=== PATIENT | female | born 1970 | race Caucasian/White ===

== ENCOUNTER → 2017-03-26 | Outpatient (CLI) | payer OTHER ==
[~2017-03-26] MED LIST: ACETAMINOPHEN-1 EAC1 PO; ALDACTONE50 MG; AMBIEN 5 MG TABL5 M1; AMITRIPTYLINE H10 M1 PO; CELEBREX 200 M200 M1; COLACE100 MG PO; CYMBALTA60 MG PO; EFFEXOR XR75 MG; FLEXERIL PO; HYDROCHLOROTH12.5 M1; HYDROCODONE-AP1 EAC6; LISINOPRIL20 MG; MEDROLDOSEPACK PO; METFORMIN HCL500 MG; MOBIC15 MG PO; NAPROSYN500 MG PO; PERCOCET 5-3251 EACH PO; ROBAXIN500 MG PO; TRAMADOL 50 MG50 MG PO; WELLBUTRIN XL150 MG PO; ZESTORETIC 20-1 EAC3 PO
--- NOTE | 2017-04-03 08:48 | PAINCON ---
[address] [address] PAIN MANAGEMENT CONSULTATION Name: JAVIER HENDERSON Room: [facility] WIL Delaney#: [id number] Admission: 03/26/17 Attend Phys: Darline Hester MD Discharge: Date of : 66 Report #: [id number] THIS REPORT FOR: //name// CC: Nicki Hester DATE OF SERVICE: 03/26/2017 CHIEF COMPLAINT: Neck pain, back pain and sciatic nerve pain. HISTORY OF PRESENT ILLNESS: The patient is a 46-year-old female who has been referred to the pain clinic for evaluation. The patient states that she has had a history of sciatic nerve pain. She is experiencing pain, which radiates down the posterior portion of her legs into her feet with numbness, weakness and tenderness. She has had this pain, which has waxed and waned. At this juncture, has become more problematic. She is having difficulty walking and engaging in activities of daily living. 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 Bending over causes an exacerbation of pain and discomfort, which radiates down into her legs, left and right in the posterior portion with numbness and tingling in her feet. She states that she has had an MRI of her back, which showed bulging disk. She has been using ibuprofen to help with the pain. She also finds Flexeril to be helpful with some of the pain, which is problematic in her legs. The patient has a history of diabetes. She does note some numbness and tingling in her hands as well as some down in her feet to the level of her ankles. She notes some burning sensation in these areas as well. She rates her pain as an 8/10 today. She has been diagnosed with fibromyalgia as well. She feels that these three pain syndromes continue to be problematic. They somewhat overlap and all add up to a pain scale of 8/10. The patient has a history of problematic sleep over the years. She does admit to snoring while sleeping. She is not sure, but feels that she might have sleep apnea. She has not undergone a sleep study, but feels that this might be warranted. MEDICATIONS: Metformin 500 mg once per day, lisinopril/hydrochlorothiazide 20/12.5 mg 1 tablet daily, cyclobenzaprine 10 mg b.i.d. taken this for 3 months, Cymbalta 60 mg started at 30 mg now up to 60 mg, has taken this for 5 months, Effexor 150 mg 1 p.o. daily has taken this for 2 weeks only. PAST MEDICAL HISTORY: Diabetes, hypertension, sciatica, arthritis, fibromyalgia, depression. ALLERGIES: HYDROCODONE, STRAWBERRIES, COMPAZINE [facility] [address] [place] [address] PAIN MANAGEMENT CONSULTATION Name: JAVIER HENDERSON Room: [facility]#: [id number] Admission: 03/26/17 Attend Phys: Darline Hester MD Discharge: Date of : 66 Report #: [id number] PAST SURGICAL HISTORY: Right carpal tunnel surgery on 07/15/2015, left carpal tunnel surgery, bilateral great toe surgeries, left shoulder scopy, appendectomy. FAMILY HISTORY: Heart disease in mother, hypertension in mother. Father, heart disease and hypertension. Cancer in father. Heart failure in brother, diabetes in brother. Colon cancer in brother, liver cancer in brother, lung cancer in brother. Heart disease in paternal grandfather and grandmother. Cancer in sister, colon cancer in sister with hypertension. Sister with diabetes. Brother with cirrhosis. Mother [place] at age 53, . Father at age 78. SOCIAL HISTORY: Works as a high school foreign language teacher. She is working at this juncture. Height 5 feet 6 inches, weight 264 pounds. Denies use of tobacco, denies use of alcoholic beverages. Denies use of illicit drugs. REVIEW OF SYSTEMS: Questionnaire 14-point review, fatigue, weakness, headaches, wears glasses, joint pain, joint stiffness and swelling, joint weakness, muscle pains and cramps, back pain, difficulty walking, cold and heat intolerance, diabetes, nervousness, depression, insomnia, numbness and tingling sensation in the lower extremities and in the hands. PHYSICAL EXAMINATION: HEENT: Unremarkable. The patient wears glasses. Conjunctivae are normal. Nonicteric sclerae, headache, atraumatic. The patient has glasses on. No complaints of sinus problems. NECK: Nontender. No masses. LUNGS: Clear to auscultation. HEART: Regular rate and rhythm. No murmurs. ABDOMEN: Protuberant. Bowel sounds positive. BACK: Inspection. No step-offs noted in the low back area, some paraspinous tenderness in the L5-S1 area bilaterally. Complains of pain and discomfort, which radiates down into the lower portion of the back of the legs in the L5-S1 distribution when the patient bends over to touch her toes. The patient has had surgery on both great toe. EXTREMITIES: Denies any clubbing or cyanosis. No significant edema. NEUROLOGIC: The patient is normal. Cognition oriented x 3. Speech pattern, normal. Cranial nerves 2-12 intact bilaterally. Deep tendon reflexes trace for the biceps bilaterally. Difficult to appreciate for the brachioradialis and triceps, knee reflex on the right, +2 at patella, +1 left ankle reflex, right +1, trace left ankle, left lateral bending, left lateral rotation were all limited. The patient complains of some pain and discomfort in the lower portion of her back and down in the leg areas. Muscle strength is judged to be +5/5 in the upper extremities and +5/+5 [place] [address] PAIN MANAGEMENT CONSULTATION Name: JAVIER HENDERSON Room: [facility]#: [id number] Admission: 03/26/17 Attend Phys: Darline Hester MD Discharge: Date of : 66 Report #: [id number] LABORATORY DATA: X-ray of the hip, AP and lateral and pelvis dated 09/30/2015 were negative for dislocation/subluxation. Joint spaces are well maintained. Soft tissues are normal. The patient spoke of an MRI, which she had another outside hospital with bulging of disk in her low back. These exams were not available at the time of our interview. IMPRESSION: 1. Lumbar radicular pain in the distribution of the L5-S1 nerve roots bilaterally -- sciatica. 2. Diabetes. 3. Hypertension. 4. Possible sleep apnea. 5. Arthritis. 6. Depression. RECOMMENDATIONS: We discussed treatment options with the patient. She states that she has recently been placed on Effexor. She has been using this medication about a week. She is not sure what level of improvement she has noted at this juncture. She is aware that it might take 4-6 weeks for this medication to become more effective. She will continue with the Cymbalta 60 mg 1 p.o. daily. She has been on this for the last month. She feels overall that these medications have been somewhat helpful with her depression. She feels that the cyclobenzaprine is helpful with the muscle spasms, which she has been experiencing. She continues to monitor her blood glucoses. States that her last A1c was approximately 6.1 or there about. She continues to try to maintain her blood sugars. She denies use of tobacco. We have discussed the problems one has with use of tobacco and chronic pain. She does snore. She feels that she may have some problems with sleep apnea. She has not been tested. She is amenable to undergo testing for this. Sometimes patients who have chronic pain, particularly pains like fibromyalgia and other gain benefit from use of a CPAP machine if they suffer from sleep apnea. Also, given her body habitus and other findings. If sleep apnea is problematic and address could be quite helpful. We will consider the use of amitriptyline. Sometimes it helps with sleep problems finds that use of Elavil at a low dose could be helpful with pain, particularly those who have diabetes or other types of pain conditions. She recalls having taken gabapentin in the past. She feels that there was some benefit with this medication. This was about the time when she is having surgery on her feet on her toes. She is open to a trial of gabapentin. Given that her medications have just a number of medications have just recently been started. We will note their efficacy before making changes this early in her treatment course. The patient will return to the pain clinic at which time an epidural steroid injection will be performed for the sciatic pain, which she is experiencing in [address] [address] PAIN MANAGEMENT CONSULTATION Name: JAVIER HENDERSON Room: [facility]#: [id number] Admission: 03/26/17 Attend Phys: Darline Hester MD Discharge: Date of : 66 Report #: [id number] her low back areas left and right. We would like to thank you for letting us participate in her care. We hope she continues to improve. <ELECTRONICALLY SIGNED> By: Darline Hester MD 04/03/17 [id number] 1902NTheresa Hester MD /[facility]
== END ==
LOC: M.PC 00:02
DX: M54.16 Radiculopathy, lumbar region (principal); M54.30 Sciatica, unspecified side; F32.9 Major depressive disorder, single episode, unspecified; M13.872 Other specified arthritis, left ankle and foot; M13.871 Other specified arthritis, right ankle and foot; M54.2 Cervicalgia; E11.9 Type 2 diabetes mellitus without complications; I10 Essential (primary) hypertension; Z98.890 Other specified postprocedural states

== ENCOUNTER → 2019-01-07 | Outpatient (CLI) | payer OTHER | LOC: M.RAD 15:14 | DX: Z12.31 Encounter for screening mammogram for malignant neoplasm of breast (principal) ==